=== PATIENT | female | born 1995 | race American Indian/Alaskan Native ===

== ENCOUNTER 2020-11-01 19:01 | Emergency (ER) | payer BC, MEDICAID ==
[2020-11-01 19:17] VITALS: BP 98/55
--- NOTE | 2020-11-01 21:43 | Emergency Department Report ---
ED Upper Extremity Inj HPI - General Chief Complaint: Extremity Injury, Upper Stated Complaint: LT FINGER INJURY Source: patient Mode of arrival: Ambulatory Limitations: No Limitations - History of Present Illness Initial Comments: Patient is a 25-year-old -[place]wegian female with no past medical history presents to the ED with complaint of acute onset persistent painful bleeding distal left small finger abrasion and partial nail avulsion after the fingernail got caught up with a piece of fabric causing avulsion of the nail. Patient wears artificial acrylic fingernails in all her fingers. Patient states the pain has been persistent and the bleeding has been constant because of the accident kept pulling the fingernail apart causing more injuries and she came to the ED to have the nail trimmed so it doesn't get caught up. Patient denies numbness and tingling or weakness of left hand or left small finger, fall, traumatic injury, nausea and vomiting, heavy lifting or fever and chills. MD Complaint: Injury to:: left, finger (Distal left small finger nail avulsion with pain and bleeding) -: Sudden, hour(s) (10) Other Injuries: none Place: home Severity scale (0 -10): 7 Improves With: none Worsens With: movement of extremity Context: direct blow (Left small finger nail got caught up on a piece of cloth, causing an avulsion from the finger), injury Associated Symptoms: denies other symptoms. denies: weakness, numbness, neck pain, suspects foreign body, nausea/vomiting, heard/felt popping sensat - Related Data Previous Rx's Medication Instructions Recorded Last Taken Type Ibuprofen [Motrin] 600 mg PO Q8H PRN #24 tablet 11/01/20 Unknown Rx cephALEXin [Keflex] 500 mg PO Q8HR #30 cap 11/01/20 Unknown Rx Allergies Allergy/AdvReac Type Severity Reaction Status Date / Time No Known Allergies Allergy Unverified 11/01/20 19:08 ED Review of Systems ROS: Stated complaint: LT FINGER INJURY Other details as noted in HPI Constitutional: denies: chills, fever Eyes: denies: eye pain, eye discharge, vision change ENT: denies: ear pain, throat pain Respiratory: denies: cough, shortness of breath, wheezing Cardiovascular: denies: chest pain, palpitations Endocrine: no symptoms reported Gastrointestinal: denies: abdominal pain, nausea, diarrhea Genitourinary: denies: urgency, dysuria, discharge Musculoskeletal: arthralgia (Left small finger pain due to a bleeding pressure nail avulsion injury). denies: back pain, joint swelling Skin: other (Bleeding partial distal left small finger nail avulsion injury). denies: rash, lesions Neurological: denies: headache, weakness, paresthesias Psychiatric: denies: anxiety, depression Hematological/Lymphatic: denies: easy bleeding, easy bruising ED Past Medical Hx - Past Medical History Previous Medical History?: No - Surgical History Past Surgical History?: No - Medications Home Medications: Home Medications Medication Instructions Recorded Confirmed Last Taken Type Ibuprofen [Motrin] 600 mg PO Q8H PRN #24 tablet 11/01/20 Unknown Rx cephALEXin [Keflex] 500 mg PO Q8HR #30 cap 11/01/20 Unknown Rx ED Physical Exam - General Limitations: No Limitations General appearance: alert, in no apparent distress - Head Head exam: Present: atraumatic, normocephalic, normal inspection - Eye Eye exam: Present: normal appearance, PERRL, EOMI Pupils: Present: normal accommodation - ENT ENT exam: Present: normal exam, normal orophraynx, mucous membranes moist, TM's normal bilaterally, normal external ear exam - Neck Neck exam: Present: normal inspection, full ROM - Respiratory Respiratory exam: Present: normal lung sounds bilaterally. Absent: respiratory distress, wheezes, rales, stridor, chest wall tenderness, accessory muscle use, decreased breath sounds, prolonged expiratory - Cardiovascular Cardiovascular Exam: Present: regular rate, normal rhythm, normal heart sounds. Absent: systolic murmur, diastolic murmur, rubs, gallop - GI/Abdominal GI/Abdominal exam: Present: soft, normal bowel sounds. Absent: tenderness, guarding, hyperactive bowel sounds, hypoactive bowel sounds, mass - Extremities Exam Extremities exam: Present: normal inspection, full ROM, tenderness (Palpable tenderness of distal left small finger due to a partial fingernail avulsion injury), normal capillary refill - Back Exam Back exam: Present: normal inspection, full ROM. Absent: tenderness, CVA tenderness (R), CVA tenderness (L), muscle spasm, paraspinal tenderness - Neurological Exam Neurological exam: Present: alert, oriented X3, CN II-XII intact, normal gait, reflexes normal - Psychiatric Psychiatric exam: Present: normal affect, normal mood - Skin Skin exam: Present: warm, dry, intact, normal color, abrasion (Bleeding small abrasion wound on distal left small finger due to a partial nail avulsion injury). Absent: rash ED Course Vital Signs 11/01/20 19:12 Temperature 98.4 F Pulse Rate 61 Respiratory 16 Rate Blood Pressure 98/55 O2 Sat by Pulse 100 Oximetry ED Medical Decision Making - Medical Decision Making This is a 25-year-old -[place]wegian female with no past medical history presents to the ED with complaint of acute onset persistent painful bleeding distal left small finger abrasion and partial nail avulsion after the fingernail got caught up with a piece of fabric causing avulsion of the nail. Patient wears artificial acrylic fingernails in all her fingers. Patient states the pain has been persistent and the bleeding has been constant because of the accident kept pulling the fingernail apart causing more injuries and she came to the ED to have the nail trimmed so it doesn't get caught up. The distal left small finger acrylic fingernail was trimmed with a pair of scissors in the ED and the patient tolerated procedure well. Patient was therefore discharged home on prophylactic antibiotics and pain medications and advised to follow-up with her primary care physician in 5 to 7 days for reevaluation or return to the ED immediately if symptoms get worse. - Differential Diagnosis Small finger abrasion; partial nail avulsion; finger contusion Critical care attestation.: If time is entered above; I have spent that time in minutes in the direct care of this critically ill patient, excluding procedure time. ED Disposition Clinical Impression: Avulsion of fingernail of left hand, Abrasion of left little finger, initial encounter Disposition: DC- TO HOME OR SELFCARE Is pt being admited?: No Does the pt Need Aspirin: No Condition: Stable Instructions: Abrasion, [id number], Sutured Wound Care, [id number], Fingernail or Toenail Removal, Adult, Care After Additional Instructions: Take medication with food, drink plenty of fluids and follow-up with your primary care physician in 7 to 10 days for reevaluation. Return to the ED immediately if symptoms get worse. Prescriptions: cephALEXin [Keflex] 500 mg PO Q8HR #30 cap Ibuprofen [Motrin] 600 mg PO Q8H PRN #24 tablet PRN Reason: Pain Referrals: [facility]EV[facility] FUNK [Other] - 3-5 Days Time of Disposition: 21:46 Print Language: HAITIAN
== END 2020-11-01 22:03 | disposition home or self-care (01) ==
LOC: ED 19:01
DX: S61.307A Unspecified open wound of left little finger with damage to nail, initial encounter (principal); Z79.1 Long term (current) use of non-steroidal anti-inflammatories (NSAID); Z79.899 Other long term (current) drug therapy; X58.XXXA Exposure to other specified factors, initial encounter; Y93.89 Activity, other specified; Y92.89 Other specified places as the place of occurrence of the external cause; Y99.8 Other external cause status
CPT/HCPCS: 99281

== ENCOUNTER 2020-12-07 10:14 | Emergency (ER) | payer BC, MEDICAID ==
--- NOTE | 2020-12-07 12:03 | Emergency Department Report ---
ED General Adult HPI - General Chief complaint: Abdominal Pain Stated complaint: STOMACH PAIN/CYST Time Seen by Provider: 12/07/20 11:58 Source: patient Mode of arrival: Ambulatory Limitations: No Limitations - History of Present Illness Initial comments: 25-year-old -Spanish female patient presents with complaints of lower abdominal pain starting yesterday. Patient states she has had similar intermittent pain for a few months and saw an [facility] via telemedicine consultation. She states that the time the [facility] told her they believe she has endometriosis, however she never followed up in office as instructed. She denies any vaginal bleeding, vaginal discharge/dyspareunia, hematuria/urinary frequency, vomiting, diarrhea, or history of abdominal surgeries. She does admit to dysuria and nausea. She also states history of a ruptured ovarian cyst. No fever/chills/sweats per patient. - Related Data Previous Rx's Medication Instructions Recorded Last Taken Type Ibuprofen [Motrin] 600 mg PO Q8H PRN #24 tablet 11/01/20 Unknown Rx cephALEXin [Keflex] 500 mg PO Q8HR #30 cap 11/01/20 Unknown Rx Acetaminophen [Acetaminophen TAB] 1,000 mg PO TID PRN #30 tablet 12/07/20 Unknown Rx Dicyclomine [Bentyl] 20 mg PO QID PRN #30 tablet 12/07/20 Unknown Rx Ibuprofen [Motrin 800 MG tab] 800 mg PO TID PRN #30 tablet 12/07/20 Unknown Rx Allergies Allergy/AdvReac Type Severity Reaction Status Date / Time No Known Allergies Allergy Verified 12/07/20 11:54 ED Review of Systems ROS: Stated complaint: STOMACH PAIN/CYST Other details as noted in HPI Constitutional: denies: chills, fever Respiratory: denies: cough, shortness of breath Cardiovascular: denies: chest pain Gastrointestinal: abdominal pain, nausea. denies: vomiting, diarrhea, constipation, hematemesis, melena, hematochezia Genitourinary: dysuria. denies: urgency, frequency, hematuria, discharge, abnormal menses, dyspareunia Skin: denies: rash, lesions, change in color Neurological: denies: headache Hematological/Lymphatic: denies: easy bleeding, swollen glands ED Past Medical Hx - Medications Home Medications: Home Medications Medication Instructions Recorded Confirmed Last Taken Type Ibuprofen [Motrin] 600 mg PO Q8H PRN #24 tablet 11/01/20 Unknown Rx cephALEXin [Keflex] 500 mg PO Q8HR #30 cap 11/01/20 Unknown Rx Acetaminophen [Acetaminophen TAB] 1,000 mg PO TID PRN #30 tablet 12/07/20 Unknown Rx Dicyclomine [Bentyl] 20 mg PO QID PRN #30 tablet 12/07/20 Unknown Rx Ibuprofen [Motrin 800 MG tab] 800 mg PO TID PRN #30 tablet 12/07/20 Unknown Rx ED Physical Exam - General Limitations: No Limitations General appearance: alert, in no apparent distress - Head Head exam: Present: atraumatic, normocephalic - Eye Eye exam: Present: normal appearance - Neck Neck exam: Present: normal inspection, full ROM - Respiratory Respiratory exam: Present: normal lung sounds bilaterally. Absent: respiratory distress - Cardiovascular Cardiovascular Exam: Present: regular rate, normal rhythm - GI/Abdominal GI/Abdominal exam: Present: soft, tenderness (Suprapubic, bilateral), normal bowel sounds. Absent: distended, rebound, rigid - Extremities Exam Extremities exam: Present: full ROM - Back Exam Back exam: Present: normal inspection. Absent: CVA tenderness (R), CVA tenderness (L) - Neurological Exam Neurological exam: Present: alert, oriented X3 - Psychiatric Psychiatric exam: Present: normal affect, normal mood - Skin Skin exam: Present: warm, dry, intact, normal color. Absent: rash ED Course Vital Signs 12/07/20 11:54 Temperature 98.6 F Pulse Rate 59 L Respiratory 14 Rate Blood Pressure 114/69 [Left] O2 Sat by Pulse 100 Oximetry ED Medical Decision Making - Lab Data Result diagrams: 12/07/20 12:02 12/07/20 12:02 Lab Results 12/07/20 12/07/20 12/07/20 Range/Units 12:02 12:02 12:02 WBC 14.8 H (4.5-11.0) K/mm3 RBC 3.97 (3.65-5.03) M/mm3 Hgb 13.3 (10.1-14.3) gm/dl Hct 38.4 (30.3-42.9) % MCV 97 (79-97) fl MCH 33 H (28-32) pg MCHC 35 H (30-34) % RDW 12.2 L (13.2-15.2) % Plt Count 245 (140-440) K/mm3 Lymph % (Auto) 13.2 L (13.4-35.0) % [place] % (Auto) 8.0 H (0.0-7.3) % Eos % (Auto) 2.5 (0.0-4.3) % Baso % (Auto) 0.5 (0.0-1.8) % Lymph # (Auto) 2.0 (1.2-5.4) K/mm3 [place] # (Auto) 1.2 H (0.0-0.8) K/mm3 Eos # (Auto) 0.4 (0.0-0.4) K/mm3 Baso # (Auto) 0.1 (0.0-0.1) K/mm3 Seg Neutrophils % 75.8 H (40.0-70.0) % Seg Neutrophils # 11.2 H (1.8-7.7) K/mm3 Sodium 135 L (137-145) mmol/L Potassium 4.1 (3.6-5.0) mmol/L Chloride 99.7 (98-107) mmol/L Carbon Dioxide 24 (22-30) mmol/L Anion Gap 15 mmol/L BUN 8 (7-17) mg/dL Creatinine 0.7 (0.6-1.2) mg/dL Estimated GFR > 60 ml/min BUN/Creatinine Ratio 11 % Glucose 79 (65-100) mg/dL Calcium 9.2 (8.4-10.2) mg/dL Total Bilirubin 0.80 (0.1-1.2) mg/dL AST 16 (5-40) units/L ALT 10 (7-56) units/L Alkaline Phosphatase 56 (35-129) units/L Total Protein 8.1 (6.3-8.2) g/dL Albumin 4.9 (3.9-5) g/dL Albumin/Globulin Ratio 1.5 % Lipase 18 (13-60) units/L HCG, Qual Negative (Negative) Urine Color (Yellow) Urine Turbidity (Clear) Urine pH (5.0-7.0) Ur Specific [place] (1.003-1.030) Urine Protein (Negative) mg/dL Urine Glucose (UA) (Negative) mg/dL Urine Ketones (Negative) mg/dL Urine Blood (Negative) Urine Nitrite (Negative) Urine Bilirubin (Negative) Urine Urobilinogen (<2.0) mg/dL Ur Leukocyte Esterase (Negative) Urine WBC (Auto) (0.0-6.0) /HPF Urine RBC (Auto) (0.0-6.0) /HPF U Epithel Cells (Auto) (0-13.0) /HPF 05// Range/Units Unknown WBC (4.5-11.0) K/mm3 RBC (3.65-5.03) M/mm3 Hgb (10.1-14.3) gm/dl Hct (30.3-42.9) % MCV (79-97) fl MCH (28-32) pg MCHC (30-34) % RDW (13.2-15.2) % Plt Count (140-440) K/mm3 Lymph % (Auto) (13.4-35.0) % [place] % (Auto) (0.0-7.3) % Eos % (Auto) (0.0-4.3) % Baso % (Auto) (0.0-1.8) % Lymph # (Auto) (1.2-5.4) K/mm3 [place] # (Auto) (0.0-0.8) K/mm3 Eos # (Auto) (0.0-0.4) K/mm3 Baso # (Auto) (0.0-0.1) K/mm3 Seg Neutrophils % (40.0-70.0) % Seg Neutrophils # (1.8-7.7) K/mm3 Sodium (137-145) mmol/L Potassium (3.6-5.0) mmol/L Chloride (98-107) mmol/L Carbon Dioxide (22-30) mmol/L Anion Gap mmol/L BUN (7-17) mg/dL Creatinine (0.6-1.2) mg/dL Estimated GFR ml/min BUN/Creatinine Ratio % Glucose (65-100) mg/dL Calcium (8.4-10.2) mg/dL Total Bilirubin (0.1-1.2) mg/dL AST (5-40) units/L ALT (7-56) units/L Alkaline Phosphatase (35-129) units/L Total Protein (6.3-8.2) g/dL Albumin (3.9-5) g/dL Albumin/Globulin Ratio % Lipase (13-60) units/L HCG, Qual (Negative) Urine Color Yellow (Yellow) Urine Turbidity Clear (Clear) Urine pH 8.0 H (5.0-7.0) Ur Specific [place] 1.016 (1.003-1.030) Urine Protein <15 mg/dl (Negative) mg/dL Urine Glucose (UA) Neg (Negative) mg/dL Urine Ketones Neg (Negative) mg/dL Urine Blood Neg (Negative) Urine Nitrite Neg (Negative) Urine Bilirubin Neg (Negative) Urine Urobilinogen < 2.0 (<2.0) mg/dL Ur Leukocyte Esterase Neg (Negative) Urine WBC (Auto) < 1.0 (0.0-6.0) /HPF Urine RBC (Auto) 3.0 (0.0-6.0) /HPF U Epithel Cells (Auto) 2.0 (0-13.0) /HPF - Radiology Data Radiology results: report reviewed TRANSVAGINAL PELVIC ULTRASOUND INDICATION / CLINICAL INFORMATION: Pelvic pain. History of ovarian cyst. COMPARISON: None available. FINDINGS: The uterus measures 6.6 x 2.6 x 4.2 cm. There is an IUD in the lower uterine body. The endometrial stripe measures 2 mm AP. No fibroids are seen. The right ovary measures 4.8 x 2.3 x 3.3 cm and contains a 2 cm mildly complex cyst with thin internal septations. No solid nodular component is seen. There is normal blood flow to the right ovary on Doppler exam. The left ovary measures 2.7 x 1.5 x 1.9 cm and demonstrates normal blood flow on Doppler exam. No free fluid is seen. IMPRESSION: 1. IUD in the lower uterine body. 2. 2 cm mildly complex right ovarian cyst is probably physiologic. No free fluid. 3. No evidence of ovarian torsion sonographically. CT OF THE ABDOMEN AND PELVIS WITH INTRAVENOUS CONTRAST INDICATION / CLINICAL INFORMATION: Suprapubic and right lower quadrant pain. TECHNIQUE: The patient received 100 cc Omnipaque [address] scans at this location are performed using CT dose reduction for ALARA by means of automated exposure control. COMPARISON: Pelvic ultrasound earlier today. FINDINGS: ABDOMEN: The liver, spleen, gallbladder, bile ducts, pancreas, adrenal glands, kidneys and bowel are normal. No adenopathy is present. The lung bases are clear. PELVIS: There is an IUD well situated within the central uterus. There is a 2.7 cm mildly thick- walled cyst in the right ovary with mild free fluid in the cul-de-sac. The left adnexa is unremarkable. I see no evidence of appendicitis or diverticulitis. I do not identify a hernia. No acute osseous abnormality is present. IMPRESSION: 2.7 cm corpus luteal cyst in the right ovary with mild associated f ree fluid in the cul-de-sac are physiologic findings. - Medical Decision Making 25-year-old -Spanish female patient presents with complaints of lower abdominal pain starting yesterday. Patient states she has had similar intermittent pain for a few months and saw an [facility] via telemedicine consultation. She states that the time the [facility] told her they believe she has endometriosis, however she never followed up in office as instructed. She denies any vaginal bleeding, vaginal discharge/dyspareunia, hematuria/urinary frequency, vomiting, diarrhea, or history of abdominal surgeries. She does admit to dysuria and nausea. She also states history of a ruptured ovarian cyst. No fever/chills/sweats per patient. Tenderness to palpation of the lower abdomen noted on exam. Mildly elevated white count on CBC noted 14.8. Labs are otherwise negative for any acute abnormalities. Pelvic ultrasound performed given patient's history of ruptured ovarian cyst- 2 cm mildly complex right ovarian cyst is probably physiologic. No free fluid. CT of the abdomen showed the following: IMPRESSION: 2.7 cm corpus luteal cyst in the right ovary with mild associated free fluid in the cul-de-sac are physiologic findings. Patient given Toradol. Pain is co ntrolled. Her vitals remain normal. Recommend follow-up with [facility] for further assessment of possible endometriosis. Discussed signs and symptoms that should prompt immediate return to the emergency department in great detail with patient who verbalizes understanding. She is nontoxic-appearing and stable for discharge home. Critical care attestation.: If time is entered above; I have spent that time in minutes in the direct care of this critically ill patient, excluding procedure time. ED Disposition Clinical Impression: Pelvic pain Disposition: DC-01 TO HOME OR SELFCARE Is pt being admited?: No Condition: Stable Instructions: Abdominal Pain (ED), Pelvic Pain, Female, Abdominal Pain, Adult, [id number] Additional Instructions: Please follow-up with your [facility] within 1 week for further evaluation Prescriptions: Acetaminophen [Acetaminophen TAB] 1,000 mg PO TID PRN #30 tablet PRN Reason: pain Dicyclomine [Bentyl] 20 mg PO QID PRN #30 tablet PRN Reason: cramping pain Ibuprofen [Motrin 800 MG tab] 800 mg PO TID PRN #30 tablet PRN Reason: pain Referrals: PRIMARY CARE, [Primary Care Provider] - 3-5 Days Forms: Work/School Release Form(ED)
[2020-12-07 12:30] LABS: Basophils # (Auto) 0.1 K/mm3 (0.0-0.1); Basophils % (Auto) 0.5 % (0.0-1.8); Eosinophils # (Auto) 0.4 K/mm3 (0.0-0.4); Eosinophils % (Auto) 2.5 % (0.0-4.3); Hematocrit 38.4 % (30.3-42.9); Hemoglobin 13.3 gm/dl (10.1-14.3); Lymphocytes % (Auto) 13.2 % (13.4-35.0); Mean Corpuscular HGB Conc 35 % (30-34); Mean Corpuscular Volume 97 fl (79-97); Monocytes # (Auto) 1.2 K/mm3 (0.0-0.8); Platelet Count 245 K/mm3 (140-440); Red Blood Count 3.97 M/mm3 (3.65-5.03); Red Cell Distribution Width 12.2 % (13.2-15.2)
[2020-12-07 12:39] LABS: Alanine Aminotransferase 10 units/L (7-56); Albumin 4.9 g/dL (3.9-5); Blood Urea Nitrogen 8 mg/dL (7-17); Calcium 9.2 mg/dL (8.4-10.2); Hemolysis Index 3
[2020-12-07 12:40] LABS: Bilirubin,Urine NEG (Negative); Blood,Urine NEG (Negative); Color,Urine Yellow (Yellow); Protein,Urine <15 mg/dL mg/dL (Negative); Urobilinogen,Urine < 2.0 mg/dL (<2.0)
[2020-12-07 12:46] LABS: WBC,Urine < 1.0 /HPF (0.0-6.0)
[2020-12-07 12:50] LABS: BUN/Creatinine Ratio 11
[2020-12-07] MEDS ORDERED: ONDANSETRON 4 MG/2 ML INJ IV ONE (16:33)
[2020-12-07] MEDS ORDERED: MORPHINE 4 MG/1 ML INJ IV ONE (16:33)
--- NOTE | 2020-12-07 17:12 | Ultrasound Report ---
TRANSVAGINAL PELVIC ULTRASOUND INDICATION / CLINICAL INFORMATION: Pelvic pain. History of ovarian cyst. COMPARISON: None available. FINDINGS: The uterus measures 6.6 x 2.6 x 4.2 cm. There is an IUD in the lower uterine body. The endometrial st ripe measures 2 mm AP. No fibroids are seen. The right ovary measures 4.8 x 2.3 x 3.3 cm and contains a 2 cm mildly complex cyst with thin interna l septations. No solid nodular component is seen. There is normal blood flow to the right ovary on Do ppler exam. The left ovary measures 2.7 x 1.5 x 1.9 cm and demonstrates normal blood flow on Doppler exam. No free fluid is seen. IMPRESSION: 1. IUD in the lower uterine body. 2. 2 cm mildly complex right ovarian cyst is probably physiologic. No free fluid. 3. No evidence of ovarian torsion sonographically. Signer Name: Mando Burris MD Signed: 12/07/2020 5:08 PM Workstation Name: [id number]
--- NOTE | 2020-12-07 17:40 | Cat Scan Report ---
CT OF THE ABDOMEN AND PELVIS WITH INTRAVENOUS CONTRAST INDICATION / CLINICAL INFORMATION: Suprapubic and right lower quadrant pain. TECHNIQUE: The patient received 100 cc Omnipaque [address] scans at this location are performed using CT dose reduction for ALARA by means of automated exposure control. COMPARISON: Pelvic ultrasound earlier today. FINDINGS: ABDOMEN: The liver, spleen, gallbladder, bile ducts, pancreas, adrenal glands, kidneys and bowel are normal. No adenopathy is present. The lung bases are clear. PELVIS: There is an IUD well situated within the central uterus. There is a 2.7 cm mildly thick-padmaja d cyst in the right ovary with mild free fluid in the cul-de-sac. The left adnexa is unremarkable. I see no evidence of appendicitis or diverticulitis. I do not identify a hernia. No acute osseous abnor mality is present. IMPRESSION: 2.7 cm corpus luteal cyst in the right ovary with mild associated free fluid in the cul-d e-sac are physiologic findings. Signer Name: Mando Burris MD Signed: 12/07/2020 5:36 PM Workstation Name: [id number]
[2020-12-07] MEDS ORDERED: KETOROLAC 30 MG/1 ML INJ IV ONE (18:04)
[2020-12-07 18:54] VITALS: BP 101/67
== END 2020-12-07 18:58 | disposition home or self-care (01) ==
LOC: ED 10:14
DX: R10.2 Pelvic and perineal pain (principal); Z79.1 Long term (current) use of non-steroidal anti-inflammatories (NSAID); Z79.899 Other long term (current) drug therapy
CPT/HCPCS: 36415; 74177; 76830; 80053; 81001; 83690; 84703; 85025; 96374; 96375; 99284; J1885; J2405; Q9967; 76856